=== PATIENT | female | born 1985 | race African-American/Black ===

== ENCOUNTER 2025-05-13 22:28 | Emergency (ER) | payer OTHER, SELFPAY ==
[2025-05-13 22:57] LABS: #Basophils 0.04 10x3/uL (0.0-0.2); #Eosinophils 0.17 10x3/uL (0.0-0.5); #Monocytes 0.68 10x3/uL (0.0-1.1); #Neutrophils 3.90 10x3/uL (1.5-8.4); %Basophils 0.5 % (0.0-2.0); %Eosinophils 2.3 % (0.0-6.0); %Lymphocytes 36.3 % (18.0-47.0); %Monocytes 9.0 % (0.0-10.0); %Neutrophils 51.8 % (40.0-75.0); Hematocrit 33.5 % (34.9-44.5); Hemoglobin 11.3 g/dL (12.0-15.5); Mean Corpuscular Hemoglobin 29.0 pg (27.0-33.0); Mean Corpuscular Volume 85.9 fL (81.6-98.3); Platelet Count 313 10x3/uL (150-450); Red Blood Cell (RBC) Count 3.90 10x6/uL (3.90-5.03); White Blood Cell (WBC) Count 7.53 10x3/uL (3.5-10.5)
[2025-05-13 23:15] LABS: ALT (SGPT) 18 U/L (Less than 34); AST (SGOT) 20 U/L (11-34); Albumin 3.6 g/dL (3.1-4.5); Alkaline Phosphatase 47 U/L (40-110); Anion Gap 13 mmol/L (10-20); BUN (Urea Nitrogen) 15 mg/dL (7.0-18.7); Bilirubin, Total 0.2 mg/dL (0.3-1.2); Calc. Creatinine Clearance 0 mL/min (70-130); Calcium 8.7 mg/dL (7.8-10.44); Carbon Dioxide 23 mmol/L (22-29); Chloride 108 mmol/L (98-107); Globulin 3.8 g/dL (2.4-3.5); Glucose 92 mg/dL (70-105); Potassium 3.7 mmol/L (3.5-5.1); Sodium 140 mmol/L (136-145)
[2025-05-13 23:22] LABS: Troponin I Less than 0.010 ng/mL (< 0.028)
[2025-05-14] MEDS ORDERED: Aspirin Chewable 81 MG TAB ONE (00:15)
[2025-05-14 00:56] LABS: Lipase 25 U/L (8-78); Magnesium 1.8 mg/dL (1.6-2.6)
[2025-05-14 01:39] LABS: Pregnancy Test - Urine (BHCG) Negative (Negative); Pregu Control Background? CLEAR/WHITE (CLR/WHITE); Pregu Control Bar Appear? YES (CONTROL BAR)
[2025-05-14] MEDS ORDERED: Iopamidol 370 76% 100 ML VIAL ONE (08:49)
== END 2025-05-14 03:07 | disposition home or self-care (01) ==
LOC: CSHERS 22:28
DX: M94.0 Chondrocostal junction syndrome [Tietze] (principal); R07.89 Other chest pain; F17.290 Nicotine dependence, other tobacco product, uncomplicated; Z86.711 Personal history of pulmonary embolism
CPT/HCPCS: 36415; 71045; 71275; 80053; 81025; 83690; 83735; 83880; 84484; 85025; 85379; 87081; 87428; 87430; 93005